=== PATIENT | male | born 1945 | race Caucasian/White ===

== ENCOUNTER 2018-05-21 01:16 | Inpatient (IN) | payer MEDICARE, SELFPAY ==
[2018-05-21] VITALS (12 sets, daily range): BP systolic 135–170; BP diastolic 68–92; PULSE 85–112; RESP 16–18; TEMP 36.7–38.9; O2SAT 94–98; BMI 19.8
--- NOTE | 2018-05-21 02:32 | DI.CT.S_ITS ---
PROCEDURE: CT ABDOMEN PELVIS W CON INDICATIONS: severe Right groin pain with radiation into his back TECHNIQUE: After the administration of intravenous contrast, 5 mm thick sections acquired from the diaphragm to the symphysis. 5 mm coronal and sagittal reformats were acquired. For radiation dose reduction, the following was used: automated exposure control, adjustment of mA and/or kV according to patient size. COMPARISON: None. FINDINGS: Image quality: Excellent. ABDOMEN: Lung bases: Lung bases are clear. Heart size is normal. Solid organs: Liver is normal in size and enhancement. Gallbladder is normal. Biliary system is non dilated. Pancreas enhances normally. Spleen is normal in size and enhancement. No adrenal nodules. Kidneys demonstrate normal size and enhancement, without hydronephrosis. Peritoneum and bowel: There is abrupt caliber change in the distal sigmoid colon. No discrete mass is identified. Moderate amount of stool is present in colon. There are a few colonic diverticula. No evidence for acute diverticulitis. No free air. A trace amount of presacral free fluid is present. Nodes and vessels: Multiple enlarged para-aortic and aortocaval lymph nodes are present. For example, a 2.4 x 1.9 cm left para-aortic lymph node is noted. There is a 1.9 x 2.5 cm aortic liver lymph node. Aorta and inferior vena cava are normal in size. There is moderate atherosclerosis. Miscellaneous: No ventral hernias. PELVIS: Genitourinary: Bladder wall thickness is normal. Enlarged prostate. Miscellaneous: Small perirectal lymph nodes are noted. No inguinal hernias or adenopathy. Bones: There are diffuse osseous sclerosis suspicious for metastases. No vertebral body compression fractures. IMPRESSION: 1. Retroperitoneal lymphadenopathy consistent with metastatic disease or lymphoma. 2. Diffuse osseous sclerosis consistent with osseous metastases. 3. Abrupt change in caliber of the distal sigmoid colon. There are small perirectal lymph nodes. Recommend colonoscopy for further evaluation rule out primary colon cancer. 4. Mild diverticulosis without acute diverticulitis. 5. Enlarged prostate. 6. Trace amount of free fluid in pelvis. No significant discrepancy with the retail shift leader radiology preliminary report. Dictated by: Evelyn Rodriguez M.D. on 05/21/2018 at 8:13 Approved by: Evelyn Rodriguez M.D. on 05/21/2018 at 8:26
[2018-05-21] MEDS: SODIUM CHLORIDE 0.9% 1,000 ML 1000 ML IV (02:44)
[2018-05-21] MEDS: HYDROMORPHONE 1 MG INJ 0.5 MG IV (02:44)
[2018-05-21] MEDS: KETOROLAC 60 MG/2 ML VIAL 15 MG IV (02:45)
[2018-05-21 03:07] LABS: Hematocrit 39.5 % (41-53); Hemoglobin 13.9 g/dL (13.5-17.5); Mean Corpuscular HGB Conc 35.1 % (30-36); Mean Corpuscular Volume 88.2 fL (80-100); Platelet Count 134 X10^3/uL (150-400); Red Blood Cell Count 4.48 X10^6/uL (4.5-5.9); Red Cell Distribution Width 12.9 % (11.6-14.8); White Blood Cell Count 12.7 X10^3/uL (4.5-11.0)
[2018-05-21 03:08] LABS: Add Manual Diff / Slide Review YES
--- NOTE | 2018-05-21 03:09 | ED_ITS ---
HPI - Male Genitourinary General Chief complaint: Urogenital-Male Stated complaint: GROIN PAIN, INJURED 6 WEEKS AGO Time Seen by Provider: 05/21/18 01:24 Source: patient and family Mode of arrival: ambulatory Limitations: no limitations History of Present Illness HPI Narrative: 73-year-old otherwise healthy male presents to the emergency department for evaluation of ongoing bilateral groin pain since an injury a few weeks ago when lifting heavy objects. He said there was no sudden onset sharp pain but over the subsequent few days his pain increased in both groins and sometimes wraps around to his back. His pain is much more intense when he moves his legs or hips and improved tremendously when sitting still but he still has some baseline discomfort. Patient denies any change in the strength of his lower extremities and denies numbness, tingling or weakness. He denies any change with urination but states he has had some constipation since starting the medications prescribed by his primary care provider. He has been receiving a combination of hydrocodone and diazepam and had an appointment with physical therapy tomorrow and an outpatient MRI but he canceled come to the emergency department. He denies chest pain or shortness of breath. He denies any fever or chills. Never had a colonoscopy Onset (ago): week(s) Duration: constant Location: right inguinal region and left inguinal region Radiation: right flank and left flank Severity: severe Quality: aching and burning Relieving factors: rest Exacerbating factors: movement lifting Reports denies other symptoms Related Data Allergies Allergy/AdvReac Type Severity Reaction Status Date / Time No Known Drug Allergies Allergy Verified 05/21/18 01:46 Review of Systems Review of Systems All systems reviewed & are unremarkable except as noted in HPI and below Constitutional Denies chills, Denies fever(s), Denies lethargy and Denies weakness Eyes Denies change in vision, Denies eye discharge, Denies irritation and Denies loss of vision ENT Ears, Nose, Mouth, and Throat: Denies change in voice, Denies neck pain and Denies sore throat Cardiovascular Denies chest pain, Denies irregular heart rhythm, Denies lightheadedness, Denies palpitations, Denies dyspnea, Denies dyspnea on exertion and Denies orthopnea Respiratory Denies cough, Denies dyspnea, Denies dyspnea on exertion and Denies wheezing Gastrointestinal Gastrointestinal: Denies abdominal pain, Denies change in bowel habits, Denies diarrhea, Denies nausea and Denies vomiting Genitourinary Reports system reviewed and no additional complaints, except as docu, Denies hematuria, Denies difficulty urinating, Denies dysuria, Reports flank pain, Denies testicular pain, Denies urinary frequency, Denies urinary incontinence and Denies urinary urgency Musculoskeletal Denies neck pain Integumentary/Breasts Denies pruritus, Denies erythema, Denies rash and Denies wounds Neurologic Denies confusion, Denies loss of vision and Denies weakness Psychiatric Denies anxiety, Denies confusion, Denies depression, Denies homicidal ideation and Denies suicidal ideation Endocrine Denies palpitations Hematologic/Lymphatic Denies easy bruising Allergic/Immunologic Denies wheezing PFSH Social History Smoking Status: Never smoker Exam Narrative Exam Narrative: 73-year-old male in mild discomfort, holding his right groin Initial Vital Signs Initial Vital Signs: Vital Signs Temperature 99.1 F 05/21/18 01:46 Pulse Rate 108 H 05/21/18 01:46 Respiratory Rate 18 05/21/18 01:46 Blood Pressure 140/91 H 05/21/18 01:46 Pulse Oximetry 97 05/21/18 01:46 Const General: cooperative, well developed and in distress Nutritional Appearance: well nourished Orientation: alert, awake, oriented x3 and not confused [facility] Head: normocephalic and atraumatic Ears: external ears normal and TM's normal bilaterally Nose: external nose normal and No nasal discharge Face and sinus: sinuses nontender, face symmetric, no sinus tenderness and No dry mucous membranes Mouth: oral mucosae normal and moist mucous membranes Teeth and gingiva: dentition normal Throat: tonsils normal and uvula midline Eyes General: appearance normal, both eyes and all related structures Eyelids: eyelids normal Conjunctivae: conjunctivae normal Sclera: sclerae normal Pupils: PERRL EOM: EOM intact bilaterally Neck Neck: normal visual inspection, trachea midline, No lymphadenopathy, No midline deformity and No JVD Lymphatic: No lymphedema Chest Chest: normal inspection of the chest Resp Effort & Inspection: normal respiratory effort, able to speak in complete sentences, no respiratory distress and no use of accessory muscles Auscultation: clear to auscultation bilaterally, no rales, no rhonchi and no wheezes Cardio Rate: regular rate Rhythm: regular rhythm Heart Sounds: no click, no gallops, no murmurs and no rubs Pulses: normal peripheral pulses GI Inspection: non-distended Palpation: soft, no hepatosplenomegaly, No guarding, No pulsatile mass and No tender Auscultation: normal bowel sounds General: bladder normal to palpation and No CVA tenderness External: no edema, no erythema, no hernia ( no hernia palpated but pain in bilateral inguinal regions with palpation or flexion at the hip), no inguinal lymphadenopathy, no lacerations and no perineal induration Back/Spine/Pelvis Back: No CVA tenderness Cervical Spine: cervical ROM normal and No pain with cervical ROM Thoracic/Lumbar Spine: thoracic and lumbar spine normal to inspection Skin General: no rashes or lesions noted, No jaundice and No petechiae Neuro General: alert, oriented x3, gait normal and no focal motor deficits Speech: speech normal Extrem General: full ROM, no clubbing, cyanosis or edema, no pedal edema and no calf tenderness Psych Appearance: well kempt Mental Status: mental status grossly normal Attitude: cooperative Thought Content: normal and suicidality Judgment: judgment good Course Orders Ordered: ED Orders 05/21/18 02:30 Carcinoembryonic Antigen Stat 05/21/18 02:32 CT abdomen pelvis w con Stat 05/21/18 02:55 Complete Blood Count AUTO DIFF Stat Comprehensive Metabolic Panel Stat Lipase Stat Discontinued Medications Hydromorphone HCl (Dilaudid) 0.5 mg IV NOW ONE Stop: 05/21/18 02:32 Last Admin: 05/21/18 02:44 Dose: 0.5 mg Sodium Chloride (Normal Saline 0.9%) 1,000 mls @ 1,000 mls/hr IV BOLUS ONE Stop: 05/21/18 03:30 Last Admin: 05/21/18 02:44 Dose: 1,000 mls/hr Ketorolac Tromethamine (Toradol) 15 mg IV NOW ONE Stop: 05/21/18 02:32 Last Admin: 05/21/18 02:45 Dose: 15 mg Reevaluation(s) Reevaluation #1: patient feeling improvement after Dilaudid IV Consultations Consultation #1: call to Dr. Infante for OBS for pain control. His service is at capacity and they can accept no more patients Time: 04:56 Vital Signs - 8 hr 05/21/18 01:46 05/21/18 05:05 05/21/18 06:02 Temperature 99.1 F 98.5 F Pulse Rate 108 H 87 88 Respiratory Rate 18 18 16 Blood Pressure 140/91 H 161/85 H Blood Pressure [Left Arm] 146/84 H Pulse Oximetry 97 95 97 MDM - Male Genitourinary Medical Records Attestation: I reviewed the patient's medical records. Lab Data Attestation: I reviewed the patient's lab results. Result diagrams: 05/21/18 02:55 05/21/18 02:55 Lab Results 05/21/18 05/21/18 05/21/18 Range/Units 02:30 02:55 02:55 WBC 12.7 H (4.5-11.0) X10^3/uL RBC 4.48 L (4.5-5.9) X10^6/uL Hgb 13.9 (13.5-17.5) g/dL Hct 39.5 L (41-53) % MCV 88.2 (80-100) fL MCH 31.0 (26-34) PG MCHC 35.1 (30-36) % RDW 12.9 (11.6-14.8) % Plt Count 134 L (150-400) X10^3/uL Neut % (Auto) Not Reportable Lymph % (Auto) Not Reportable [place] % (Auto) Not Reportable Eos % (Auto) Not Reportable Baso % (Auto) Not Reportable Total Counted 100 Seg Neutrophils % 52.0 (38-70) % Band Neutrophils % 17.0 H (3-7) % Lymphocytes % (Manual) 19.0 L (25-45) % Monocytes % (Manual) 8.0 (2-11) % Basophils % (Manual) 1.0 (0-1) % Metamyelocytes % 3.0 H (-0) % Neutrophils # (Manual) 8763 H (4111-5485) /uL RBC Morphology Not Reportable Basophilic Stippling 1+ H Anisocytosis 1+ H Sodium 135 L (137-145) mmol/L Potassium 4.2 (3.4-5.1) mmol/L Chloride 96 L (98-107) mmol/L Carbon Dioxide 31 (22-32) mmol/L BUN 16 (9-20) mg/dL Creatinine 0.80 (0.66-1.25) mg/dL Estimated GFR > 60.0 (>60) mL/min BUN/Creatinine Ratio 20.0 (6-22) Glucose 109 (80-110) mg/dL Calcium 8.9 (8.4-10.2) mg/dL Total Bilirubin 1.0 (0.2-1.3) mg/dL AST 140 H (17-59) IU/L ALT 77 H (21-72) IU/L Alkaline Phosphatase 586 H (38-126) U/L Total Protein 6.7 (6.3-8.2) g/dL Albumin 3.9 (3.5-5.0) g/dL Globulin 2.8 (1.7-4.1) g/dL Albumin/Globulin Ratio 1.4 (1.0-2.8) Lipase 33 (23-300) U/L Carcinoembryonic Ag 2.8 (0.1-3.0) ng/mL Imaging Data CT scan - abdomen: Radiologist's impression: 1. Possible mild wall thickening of the rectosigmoid colon. Query mild proctocolitis 2. Abrupt narrowing of the colon at the distal sigmoid. Few perirectal lymph nodes. Rectosigmoid malignancy not excluded 3. Moderate retroperitoneal lymphadenopathy 4. Multiple sclerotic osseous lesions concerning for metastatic disease MDM Narrative Medical decision making narrative: Patient has had adequate prescription for pain control as an outpatient and is not being appropriately controlled. He requires IV pain meds to control his pain. Discharge Plan Departure Patient Disposition: Admitted As Inpatient Clinical Impression: Intractable abdominal pain, Metastatic bone cancer Discharge Date/Time: 05/21/18 05:35 Interventions: ED Discharge Assessment Last Done: 05/21/18 05:35 Admit Date/Time: 05/21/18 05:24 Admit Provider: Kurtis More
[2018-05-21 03:14] LABS: Alanine Aminotransferase 77 IU/L (21-72); Albumin 3.9 g/dL (3.5-5.0); Albumin Globulin Ratio 1.4 (1.0-2.8); Alkaline Phosphatase 586 U/L (38-126); Aspartate Aminotransferase 140 IU/L (17-59); Blood Urea Nitrogen 16 mg/dL (9-20); Calcium 8.9 mg/dL (8.4-10.2); Carbon Dioxide 31 mmol/L (22-32); Chloride 96 mmol/L (98-107); Estimated Glomerular Filt Rate > 60.0 mL/min (>60); Globulin 2.8 g/dL (1.7-4.1); Glucose 109 mg/dL (80-110); HEMOLYSIS < 15 (0-50); Lipase 33 U/L (23-300); Potassium 4.2 mmol/L (3.4-5.1); Sodium 135 mmol/L (137-145); Total Protein 6.7 g/dL (6.3-8.2)
[2018-05-21 03:35] LABS: Neutrophils Absolute Manual 8763 /uL (3000-5900); Total Cells Counted 100
[2018-05-21 03:36] LABS: Anisocytosis 1+; Basophilic Stippling 1+
--- NOTE | 2018-05-21 05:40 | PC.NURSE ---
pt to room via w/c, amb to bed indep, is present steady on his feet.
[2018-05-21 06:12] LABS: Carcinoembryonic Antigen 2.8 ng/mL (0.1-3.0)
[2018-05-21] MEDS: SODIUM CHLORIDE 0.9% 1,000 ML 125 ML IV ×2 (08:37→16:31)
[2018-05-21] MEDS: HYDROMORPHONE PCA 6 MG/30 ML PCA.VIAL IV ×3 (08:37→21:40)
--- NOTE | 2018-05-21 09:13 | P.HP_ITS ---
History of Present Illness Date Patient Seen: 05/21/18 Time Patient Seen: 08:41 Chief complaint: GROIN PAIN, INJURED 6 WEEKS AGO Narrative: 73-year-old otherwise relatively healthy white male who presented to the emergency department earlier this morning with complaints of 2-3 weeks of intractable right sciatic pain, pelvic pressure, and low back pain near the sacrum. He had been moving some items at his home on [address] several weeks ago and thought that he may have just simply incurred a musculoskeletal strain. He consulted with his family physician who placed him on [place], but the patient has noticed this to be ineffective with progression of his pain over the last 7-10 days. Denies any dysuria or hematuria. No urinary retention. Since starting the pain medication, however, he has had progressive difficulties with constipation. Last bowel movement was 2 days ago. He normally moves his bowels easily once daily. He is passing some flatus. Denies any subjective abdominal distention or pain elsewhere in the abdomen. No nausea or vomiting. Appetite has been decreased over the last 2 or 3 weeks since the onset of his symptoms and he reports a 10 lb weight loss over that time frame. No subjective fever or chills. No night sweats. Denies any jaundice. Major issue currently remains his significant pain in the right groin and right sciatic distribution. Denies any numbness or tingling elsewhere in the lower extremities. No weakness. No incontinence of stool or urine. Denies any melena, hematochezia, or bright red blood per rectum. Of note, he has never had a colorectal screening examination such as colonoscopy. 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 Meds Allergies Allergy/AdvReac Type Severity Reaction Status Date / Time No Known Drug Allergies Allergy Verified 05/21/18 01:46 Review of Systems Constitutional Constitutional: Denies chills, Denies fever(s), Denies night sweats, Reports poor appetite, Denies weakness and Reports weight loss Eyes Eyes: Denies change in vision, Denies itchy eyes and Denies loss of vision ENT Ears, Nose, Mouth, and Throat: No change in voice, No difficulty swallowing and No dizziness Cardiovascular Cardiovascular: Denies chest pain, Denies chest pain at rest, Denies chest pain with activity and Denies rapid, pounding, or irregular heartbeat Respiratory Respiratory: Denies cough and Denies wheezing Gastrointestinal Gastrointestinal: Reports as per HPI and Denies dysphagia Genitourinary Genitourinary: Reports as per HPI Musculoskeletal Musculoskeletal: Reports as per HPI Integumentary/Breasts Skin/Breast: Denies change in pigmentation and Denies jaundice Neurologic Neurologic: Denies dizziness, Denies loss of vision, Reports radicular pain (As per HPI) and Denies weakness Psychiatric Psychiatric: Denies anxiety and Denies depression Endocrine Endocrine: Denies polyuria and Denies palpitations Hematologic/Lymphatic Hematologic/Lymphatic: Denies easy bleeding and Denies easy bruising Allergic/Immunologic Allergic/Immunologic: Denies itchy eyes and Denies wheezing Exam Vital Signs (past 8 hours): - 05/21/18 01:46 05/21/18 05:05 05/21/18 06:02 Temperature 99.1 F 98.5 F Pulse Rate 108 H 87 88 Respiratory Rate 18 18 16 Blood Pressure 140/91 H 161/85 H Blood Pressure [Left Arm] 146/84 H Pulse Oximetry 97 95 97 Oxygen Delivery Method Room Air Narrative Exam Narrative: Well-nourished well-developed thin male in no acute distress. He is lying comfortably in bed at the time my visit. Alert oriented x3 Sclera nonicteric Neck is supple without lymphadenopathy. Trachea is midline. Chest is clear to auscultation bilaterally with regular rate and rhythm. No murmurs, gallops, rubs Abdomen is soft, nondistended, nontender, no masses. No hepatomegaly. No obvious ascites. Femoral pulses are easily palpable bilaterally and symmetric. No inguinal lymphadenopathy or masses. No obvious hernias. He is minimally tender to palpation in the lower abdomen at the suprapubic region but certainly without guarding or rebound. Extremities show no clubbing, cyanosis, or edema. No atrophy. He has normal strength with extension and dorsiflexion of the feet bilaterally. Full range of motion of lower extremities. Rectal examination is deferred in light of pending endoscopy tomorrow. Objective Labs Result Diagrams: 05/21/18 02:55 05/21/18 02:55 Labs: Laboratory Results - last 24 hr 05/21/18 05/21/18 05/21/18 02:30 02:55 02:55 WBC 12.7 H RBC 4.48 L Hgb 13.9 Hct 39.5 L MCV 88.2 MCH 31.0 MCHC 35.1 RDW 12.9 Plt Count 134 L Neut % (Auto) Not Reportable Lymph % (Auto) Not Reportable [place] % (Auto) Not Reportable Eos % (Auto) Not Reportable Baso % (Auto) Not Reportable Total Counted 100 Seg Neutrophils % 52.0 Band Neutrophils % 17.0 H Lymphocytes % (Manual) 19.0 L Monocytes % (Manual) 8.0 Basophils % (Manual) 1.0 Metamyelocytes % 3.0 H Neutrophils # (Manual) 8763 H RBC Morphology Not Reportable Basophilic Stippling 1+ H Anisocytosis 1+ H Sodium 135 L Potassium 4.2 Chloride 96 L Carbon Dioxide 31 BUN 16 Creatinine 0.80 Estimated GFR > 60.0 BUN/Creatinine Ratio 20.0 Glucose 109 Calcium 8.9 Total Bilirubin 1.0 AST 140 H ALT 77 H Alkaline Phosphatase 586 H Total Protein 6.7 Albumin 3.9 Globulin 2.8 Albumin/Globulin Ratio 1.4 Lipase 33 Carcinoembryonic Ag 2.8 Liver function tests would potentially suggest nonobstructive inflammation versus elevated alkaline phosphatase secondary to bony erosion. Tests are otherwise unremarkable. I have personally reviewed his CT scan of the abdomen and pelvis done in the emergency department. There is evidence of significant thickening of the colon near the rectosigmoid junction and appears to be most consistent with mass versus inflammatory process. There is some abnormal lymph nodes in the mesentery. Sclerotic lesions of the bone may suggest metastases as well which would explain his pain symptoms. Assessment & Plan Plan: Assessment/Plan Narrative: 73-year-old male with possible colorectal neoplasia with potential metastases to lymph nodes and bones based on imaging and laboratory studies. CEA is normal however. Regardless, the patient clearly requires endoscopy with potential biopsy for diagnostic purposes. He also needs admission for intravenous narcotics for pain control. We will have to work define an adequate oral pain regimen within the next 1-2 days to suffice as an outpatient. I discussed the technical details of colonoscopy including the bowel preparation with him today. Risks, benefits, alternatives were discussed. Risks including but not limited to sedation, aspiration, bleeding, pain, missed lesion, incomplete examination especially if the lesion is somewhat obstructing, need for further radiographic studies or treatment, need for further tests, nondiagnostic study, colonic perforation, need for major abdominal surgery under those conditions, and potential risk of major abdominal surgery were all discussed in detail. All questions were answered to his satisfaction, and he voiced understanding. Consent was left on the chart. We will perform bowel preparation today and proceed with endoscopy tomorrow. Orders were written.
--- NOTE | 2018-05-21 09:26 | CM.DANOTE ---
DCP:Case received, EMR reviewed and met with patient. Introduced self ad role.DCP template completed with info currently available. Patient is a 73 year old male who admitted early this am to the care of the hospitalist team. PCP: Dr. Alexander. Payer: confirmed Medicare. Patient came into hospital with symptoms of groin pain. Also, bowel issues. Will be having an endoscopy today as well. P: DCP will continue to plan assess. Goal is to return home with . Latesha Linder RN/Freight [employer]
[2018-05-21] MEDS: ENOXAPARIN 40 MG/0.4 ML SYRINGE SUBCUT (10:13)
[2018-05-21] MEDS: PEG3350/SOD SULF,BICARB,CL/KCL 4,000 ML SOLUTION 4000 ML PO (16:39)
[2018-05-21] MEDS: ACETAMINOPHEN 325 MG TABLET 650 MG PO (16:46)
[2018-05-22] VITALS (9 sets, daily range): BP systolic 139–173; BP diastolic 71–87; PULSE 96–107; RESP 16–20; TEMP 36.5–38.6; O2SAT 93–98
[2018-05-22] MEDS: SODIUM CHLORIDE 0.9% 1,000 ML 125 ML IV ×4 (01:24→16:56)
[2018-05-22] MEDS: ACETAMINOPHEN 325 MG TABLET 650 MG PO (01:49)
--- NOTE | 2018-05-22 02:13 | PC.NURSE ---
pt noted w/face flushed, warm to touch, temp recheck = 101.5, medicated w/650mg of tylenol & cool cloth to forehead. 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 completed 1/2 bottle of go-lytely atmidnight w/discomfort r/t tight abd. 2 episodes of brown liquid to in toilet eerly in shift, large amt dark brown liquid stool on bsc reported by fork truck driver at aprx 0100.
[2018-05-22] MEDS: HYDROMORPHONE PCA 6 MG/30 ML PCA.VIAL IV ×3 (06:58→22:11)
--- NOTE | 2018-05-22 08:02 | PM.PREOP ---
Pre-operative Note Interval Note Pre-op Check: Yes History & Physical Reviewed by Physician and Yes Exam Performed Changes: No H&P completed within 30 days and has changed as indicated here:: History physical examination performed yesterday and placed on the chart. No changes over the last 24 hr. Patient has completed bowel preparation for colonoscopy. Proceed today as planned. ASA Class (for procedural sedation): II
[2018-05-22] MEDS: MAGNESIUM CITRATE 300 ML SOLUTION PO (08:11)
[2018-05-22] MEDS: FLEETS ENEMA 1 EACH PR ×2 (08:12→22:03)
--- NOTE | 2018-05-22 10:47 | PC.NURSE ---
Addendum entered by Jerica Alston R.N. 05/22/18 13:37: PAIN - comfortable in chair, discussed pain mgt and mobilization this afternoon, given 5mg po oxycodone for discomfort l knee 3 on scale 0/10. Original Note: Addendum entered by Jerica Alston R.N. 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
--- NOTE | 2018-05-22 13:33 | P.PN_ITS ---
Subjective Date Patient Seen: 05/22/18 Time Patient Seen: 13:30 Interval history: Patient completed most of the bowel preparation but it was not adequate. He is still passing opaque stool. We therefore could not proceed with colonoscopy today. We will re-prep the patient today. Currently his pain is controlled. No nausea or vomiting. No dysuria. Exam Vital Signs (past 8 hours): - 05/22/18 08:00 05/22/18 08:37 05/22/18 11:56 Temperature 97.7 F 97.4 F L Pulse Rate 103 H 89 Respiratory Rate 16 12 Blood Pressure 143/86 H 127/90 H Pulse Oximetry 96 93 99 05/22/18 12:00 05/22/18 12:05 05/22/18 12:20 Temperature 99.1 F 97.4 F L 97.5 F L Pulse Rate 103 H 95 H 94 H Respiratory Rate 16 8 L 16 Blood Pressure 151/74 H 122/83 H 149/104 H Pulse Oximetry 94 97 Oxygen Delivery Method Nasal Cannula Oxygen Flow Rate 3 Narrative Exam Narrative: Alert oriented x3. No acute distress. is at the bedside Abdomen soft and nondistended Patient ambulating with the assistance of a walker Objective Labs Result Diagrams: 05/21/18 02:55 05/21/18 02:55 Assessment & Plan Plan: Assessment/Plan Narrative: 73-year-old male with groin and pelvic pain consistent with advanced colorectal neoplasia. He requires colonoscopy for diagnostic purposes. However, his bowel preparation is inadequate today despite receiving GoLYTELY, Fleet's enema , and magnesium citrate. We will therefore cancel colonoscopy today and rescheduled for tomorrow. Perform additional preparation and maintain clear liquid diet today. I discussed all this with the patient and his in detail. All questions were answered to their satisfaction, and he voiced understanding.
[2018-05-22] MEDS: ENOXAPARIN 40 MG/0.4 ML SYRINGE SUBCUT (14:09)
[2018-05-22] MEDS: POLYETHYLENE GLYCOL 3350 17 GM POWD.PACK PO (17:04)
[2018-05-23] VITALS (25 sets, daily range): BP systolic 88–166; BP diastolic 44–83; PULSE 74–113; RESP 10–18; TEMP 36.3–38.4; O2SAT 90–98; BMI 19.8
[2018-05-23] MEDS: SODIUM CHLORIDE 0.9% 1,000 ML 125 ML IV ×2 (01:05→10:00)
[2018-05-23] MEDS: POLYETHYLENE GLYCOL 3350 17 GM POWD.PACK PO (04:01)
[2018-05-23] MEDS: HYDROMORPHONE PCA 6 MG/30 ML PCA.VIAL IV (05:30)
[2018-05-23] MEDS: ACETAMINOPHEN 325 MG TABLET 650 MG PO (06:13)
--- NOTE | 2018-05-23 08:16 | PC.NURSE ---
AM NOTE - sitting upright in chair, dozing, awakens easily, states abd pain about the same, not improved overnight, dilaudid web master 0.2/10/6mg, did have miralax 4am, no stool since admin, 2l 98%, removed 02 for mobilizing in room and sat 93-94%, bs dim mid to lower, active bt. hr occass irreg 102, spouse at side while ambul w/fww in room, ret to chair.
--- NOTE | 2018-05-23 08:26 | PM.PREOP ---
Pre-operative Note Interval Note Pre-op Check: Yes History & Physical Reviewed by Physician and Yes Exam Performed Changes: No ASA Class (for procedural sedation): II
--- NOTE | 2018-05-23 10:06 | SUR.OPER ---
to endo from pacu via cart respirations unlabored iv patnet positioneed per self for procedure
[2018-05-23] MEDS: MIDAZOLAM 5 MG/5 ML VIAL 6 MG IV (10:52)
[2018-05-23] MEDS: fentaNYL 250 MCG/5 ML INJ 350 MCG IV (10:52)
--- NOTE | 2018-05-23 10:56 | PM.OP.ENDO ---
Operative Date/Time/Diagnoses Date of procedure: 05/23/18 Time of procedure: 10:56 Pre-op diagnosis: Possible colorectal neoplasm with bony metastases Post-op diagnosis: other (Normal colon and rectum within the context of an extremely poor bowel preparation) Procedure & Clinicians Study performed: 1. Sedation per surgeon 2. Colonoscopy Same procedure as scheduled: Yes Indications: 73-year-old male who presented with intractable pelvic pain at which time CT scan suggested rectosigmoid neoplasm with potential bony and lymphatic metastases. Patient was admitted for pain control with intravenous narcotics since oral medication was not effective. He was also recommended undergo colonoscopy during this admission for potential diagnostic purposes. He required a 2 day bowel preparation as he was refractory to standard bowel regimen. After a 2 day bowel preparation consisting of clear liquids only, 0.5 gal of GoLYTELY, 2 bottles of MiraLax, 1 bottle of magnesium citrate, and 2 Fleet's enemas he was taken to the endoscopy suite for planned colonoscopy today. Surgeon: Kurtis More Procedure Notes SCOAP/Timeout: Yes Procedure in detail: After obtaining informed consent, the patient was brought to the GI suite and placed in the left lateral decubitus position on the examination table. After placement of appropriate monitors, the patient was given incremental doses of Versed and Fentanyl until an appropriate level of sedation was achieved. A time out was held per SCOAP protocol. A digital rectal examination was performed and did not reveal any masses or obstructing lesions. The colonoscope was gently passed into the patient's anus and the entire colon navigated to the level of the cecum with difficulty due to extremely poor bowel preparation. There was opaque thick liquid and some solid stool throughout the entire colon. Once in the cecum, the scope was withdrawn being sure to go before and beyond all mucosal folds and prominences and get an excellent examination. Terminal ileum was intubated and the mucosa was grossly normal. The findings are noted above. However, there was absolutely no evidence of any obvious mucosal neoplasms that would explain the CT scan findings or any significant neoplastic colorectal disease. He may have had polypoid lesions throughout the colon which could not be appreciated due to the poor preparation. No obvious large tumors however consistent with CT scan suggestion of such. At the level of the rectal vault, the scope was retroflexed and the internal anal canal was examined. The scope was straightened and air aspirated from the colon. The instrument was removed from the patient's body and the procedure was concluded. The patient was allowed to awaken from sedation without difficulty and taken to the post-anesthesia care unit in good condition. Scope withdrawal time: 10:06 min Sedation minutes: 44 Findings: other findings (Normal colon and rectum within the context of very poor bowel preparation) Specimen(s): none sent Complications: none Recommendations: Other recommendation (Repeat colonoscopy it later date for screening purposes but requires ongoing evaluation for other primary tumor) Plan for aftercare: 1. Return to regular surgical floor for ongoing convalescence 2. Repeat CBC, complete metabolic panel, and obtain PSA level 3. Allow regular diet and convert to oral analgesia Follow up: as needed Disposition: PACU
--- NOTE | 2018-05-23 10:59 | PC.NURSE ---
Addendum entered by Jerica Alston R.N. 05/23/18 12:44: POT OP - arrived drowsy, awakens easily, slid guerney over to bed, pain about the same, still rlq, restarted budget record clerk until pt able jessica po and then discussed po dilaudid for pain control, ra 93%, vs stable, 149/82, p102, too groggy for po at this time, given small sip water as pt dislikes ice chips, dinner order plain white rice and veg broth ordered and spouse will bring in items that she feels pt tolerates, vegetarian diet w/limited dairy. Original Note: AM NOTE - pt up in chair this am, lightly dozing, states pain r groin, lower abd about the same, budget record clerk providing adequate relief, did have miralax this am, no immediate stool, later am did have small qty brown sediment x2, aware and continued with colonoscopy, bs were active, taken via chair with spouse accompanying, prior to ts, 2l 98%, bs are dim, ra sat remained 93-94%, hr 102.
[2018-05-23] MEDS: ENOXAPARIN 40 MG/0.4 ML SYRINGE SUBCUT (12:18)
[2018-05-23 14:37] LABS: Add Manual Diff / Slide Review NO; Basophils Percent Auto 0.5 % (0-2); Eosinophils Percent Auto 0.4 % (2-4); Hematocrit 33.2 % (41-53); Hemoglobin 11.7 g/dL (13.5-17.5); Lymphocytes Percent Auto 14.2 % (25-40); Mean Corpuscular HGB Conc 35.2 % (30-36); Mean Corpuscular Hemoglobin 31.3 PG (26-34); Monocytes Percent Auto 7.8 % (3-14); Neutrophils Absolute Auto 8400 /uL (3000-5900); Neutrophils Percent Auto 77.1 % (50-75); Platelet Count 113 X10^3/uL (150-400); Red Blood Cell Count 3.74 X10^6/uL (4.5-5.9); Red Cell Distribution Width 13.2 % (11.6-14.8); White Blood Cell Count 10.9 X10^3/uL (4.5-11.0)
[2018-05-23 14:50] LABS: Alanine Aminotransferase 67 IU/L (21-72); Albumin 2.9 g/dL (3.5-5.0); Albumin Globulin Ratio 1.2 (1.0-2.8); Alkaline Phosphatase 494 U/L (38-126); Aspartate Aminotransferase 113 IU/L (17-59); BUN Creatinine Ratio 21.4 (6-22); Bilirubin Total 0.9 mg/dL (0.2-1.3); Blood Urea Nitrogen 15 mg/dL (9-20); Calcium 8.2 mg/dL (8.4-10.2); Carbon Dioxide 28 mmol/L (22-32); Chloride 98 mmol/L (98-107); Estimated Glomerular Filt Rate > 60.0 mL/min (>60); Globulin 2.5 g/dL (1.7-4.1); Glucose 85 mg/dL (80-110); HEMOLYSIS < 15 (0-50); Potassium 3.9 mmol/L (3.4-5.1); Sodium 136 mmol/L (137-145); Total Protein 5.4 g/dL (6.3-8.2)
--- NOTE | 2018-05-23 15:44 | CM.DPC ---
DCP: continued: Case received, EMR reviewed and met at length with pt's Jesscia at her request. Pt with new diagnosis of cancer, per Jessica, discovered in the ER. Primary source has yet to be discovered and she reports she and her are just trying to come to optical mechanic with everything. She is concerned re her 's level of pain when he moves and need for ongoing outpt testing etc. 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 They have a 17 year old.) but she hopes for a snf stay in [place] and to give time for the DX and POC to clarify and with eventual return home. Discussed snf choice/[place]/[facility]. Referral make/vm left with [place]/[facility] now. P: talk with Dr. More tomorrow when he rounds. Jessica has been rooming in with pt. Will see her and pt tomorrow and am hopeful all can discuss plan. JUANIS Pizano and rayne Restrepo are update. Confirmed pt has Medicare/ no supplement.
[2018-05-23] MEDS: HYDROMORPHONE 2 MG TABLET PO ×3 (17:05→23:44)
[2018-05-23] MEDS: ONDANSETRON 4 MG/2 ML INJ IV (17:05)
--- NOTE | 2018-05-23 17:18 | P.PN_ITS ---
Subjective Date Patient Seen: 05/23/18 Time Patient Seen: 17:11 Interval history: Patient continues to complain of right groin pain as per his admission issues. Remains on Dilaudid [employer] since his appetite remains poor. He has passed some flatus since colonoscopy earlier this morning. No nausea or vomiting. No dysuria. Did have a fever earlier this afternoon immediately after endoscopy. Exam Vital Signs (past 8 hours): - 05/23/18 09:44 05/23/18 10:55 05/23/18 11:00 Temperature 98.7 F 99.1 F Pulse Rate 91 H 80 79 Respiratory Rate 11 L 10 L 10 L Blood Pressure 143/83 H 96/50 L 91/46 L Pulse Oximetry 96 97 98 05/23/18 11:05 05/23/18 11:10 05/23/18 11:15 Temperature Pulse Rate 79 78 82 Respiratory Rate 10 L 10 L 10 L Blood Pressure 90/46 L 89/46 L 88/44 L Pulse Oximetry 97 97 97 05/23/18 11:20 05/23/18 11:35 05/23/18 11:50 Temperature Pulse Rate 80 74 76 Respiratory Rate 10 L 10 L 12 Blood Pressure 107/49 L 90/44 L 99/53 L Pulse Oximetry 96 97 98 05/23/18 12:05 05/23/18 12:40 05/23/18 13:07 Temperature 97.6 F 97.4 F L 97.8 F Pulse Rate 93 H 95 H 82 Respiratory Rate 16 16 16 Blood Pressure 149/82 H 143/77 H 139/81 H Pulse Oximetry 92 95 96 05/23/18 14:05 05/23/18 14:10 05/23/18 15:11 Temperature 98.1 F 101.2 F H Pulse Rate 98 H 113 H Respiratory Rate 16 16 Blood Pressure 157/78 H 155/76 H Pulse Oximetry 95 97 93 05/23/18 16:05 Temperature Pulse Rate Respiratory Rate Blood Pressure Pulse Oximetry 96 Oxygen Delivery Method Room Air Oxygen Flow Rate 2 Narrative Exam Narrative: Lying comfortably in bed in no acute distress. He just awoke from a nap. is at the bedside for my entire visit this afternoon. Patient is alert and oriented x3 Abdomen is soft but mildly tympanitic consistent with recent endoscopy. Nontender. Objective Labs Result Diagrams: 05/23/18 14:30 05/23/18 14:30 Labs: Laboratory Results - last 24 hr 05/23/18 05/23/18 14:30 14:30 WBC 10.9 RBC 3.74 L Hgb 11.7 L Hct 33.2 L MCV 89.0 MCH 31.3 MCHC 35.2 RDW 13.2 Plt Count 113 L Neut % (Auto) 77.1 H Lymph % (Auto) 14.2 L [place] % (Auto) 7.8 Eos % (Auto) 0.4 L Baso % (Auto) 0.5 Neut # (Auto) 8400 H Sodium 136 L Potassium 3.9 Chloride 98 Carbon Dioxide 28 BUN 15 Creatinine 0.70 Estimated GFR > 60.0 BUN/Creatinine Ratio 21.4 Glucose 85 Calcium 8.2 L Total Bilirubin 0.9 AST 113 H ALT 67 Alkaline Phosphatase 494 H Total Protein 5.4 L Albumin 2.9 L Globulin 2.5 Albumin/Globulin Ratio 1.2 Prostate Specific Ag 536.000 H Assessment & Plan Plan: Assessment/Plan Narrative: 73-year-old male stable status post colonoscopy earlier today. Endoscopic findings were essentially unremarkable. I discussed all of these findings with the patient in detail this afternoon. His repeat laboratory studies obtained after endoscopy demonstrates significant protein malnutrition, anemia likely secondary to tumor and malnutrition, and obviously a significantly elevated abnormal prostate specific antigen. 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 The bony metastases would most likely explain his symptoms of pain. Discussed all this with the patient and his in detail this afternoon. I also explained that treatment of prostate cancer falls well beyond my expertise. He requires the services of a urologist and medical oncologist. He may also require radiation oncology. I explained that we do not have urology services in any capacity at this institution. We can, however , facilitate a referral for their consultation likely as an outpatient within the next 1-2 weeks. In the interim we will continue to treat his pain accordingly. I will also check urinalysis given his fever. If he is otherwise stable I will discharge him from the hospital tomorrow with outpatient consultations for the above services. At this time there are no further issues that fall under the realm of general surgery for which I can offer my expertise. Nonetheless I will continue to manage his pain to the best of my ability and arrange the above consultations as quickly as possible. All the patient's questions were answered to his satisfaction, and he voiced understanding.
[2018-05-23 18:13] LABS: Bacteria Urine None Seen; RBC Urine None Seen (0-5/HPF); WBC Urine None Seen (0-5/HPF)
[2018-05-23 18:14] LABS: Appearance Urine UA CLEAR; Bilirubin Urine UA NEGATIVE (NEGATIVE); Color Urine UA YELLOW; Glucose Urine UA NEGATIVE (Normal); Ketones Urine UA 2+ (NEGATIVE); Leukocyte Esterase Urine UA NEGATIVE (NEGATIVE); Nitrite Urine UA Negative (Negative); Occult Blood Urine UA TRACE-LYSED (Negative); Protein Urine UA 1+ (Negative); Specific Gravity Urine UA 1.025 (1.000-1.035); Urobilinogen Urine UA 0.2 E.U./dL (0.2)
[2018-05-23 18:36] LABS: Amorphous Sediment Urine 1+; Culture Indicated Urine Cult Not Indicated
[2018-05-23] MEDS: GABAPENTIN 300 MG CAPSULE PO (20:27)
[2018-05-23] MEDS: SENNOSIDES 8.6 MG TABLET PO (20:32)
[2018-05-23] MEDS: DOCUSATE 100 MG CAPSULE PO (20:32)
[2018-05-24] VITALS (16 sets, daily range): BP systolic 104–136; BP diastolic 59–82; PULSE 64–170; RESP 12–22; TEMP 36.8–38.4; O2SAT 94–98
--- NOTE | 2018-05-24 | DI.ECHO.S_ITS ---
[facility] +---------+ [facility] +---------+ : : [address] : : : : [id number] : : : : Phone: [phone]---------+ Echocardiogram Report + + :Name: ROSALVA SINGH I Study Date: 05/25/2018 Height: 68 in : :[facility] Weight: 135 lb : : Gender: Male BSA: 1.7 m2 : :: 1945 Age: 73 yrs BP: 151/79 mmHg: :Reason For Study: Atrial fibrillation : : Performed By: Cici Mckinney : :Referring: IGLESIA GRIFFITH : + + Interpretation Summary The ejection fraction is estimated to be 60-65%. The left atrium is moderately dilated. The right ventricular systolic pressure is estimated at 30 mmHg assuming a right atrial pressure of 3 mm Hg. There is no significant valvular heart disease. Procedure: A two-dimensional transthoracic echocardiogram with color flow and Doppler was performed. The study quality was technically good. There is no prior echocardiogram noted for this patient. The patient was in normal sinus rhythm during the exam. Left Ventricle: The left ventricle is normal in size, wall thickness, and systolic function without any focal wall motion abnormalities. The ejection fraction is estimated to be 60-65%. Assessment of diastolic parameters suggests a pseudonormalization pattern, consistent with elevated filling pressures. Right Ventricle: The right ventricle grossly appears normal in size with probable normal systolic function. Atria: The left atrium is moderately dilated. Right atrial size is normal. The interatrial septum is intact with no evidence for an atrial septal defect. Mitral Valve: The mitral valve is normal in structure and function. There is trace mitral regurgitation. Aortic Valve: The aortic valve is trileaflet. The aortic valve opens well. No aortic regurgitation is present. Tricuspid Valve: The tricuspid valve is normal in structure and function. There is a trace or physiologic amount of tricuspid regurgitation. The right ventricular systolic pressure is estimated at 30 mmHg assuming a right atrial pressure of 3 mm Hg. Pulmonic Valve: The pulmonic valve is not well seen, but is grossly normal. There is mild pulmonic regurgitation. Great Vessels: The aortic root is mildly dilated. The ascending aorta is at the upper limits of normal in size. The IVC is of normal diameter and collapses greater than 50% with a sniff. This suggests a low right atrial pressure of 3 mm Hg. Pericardium/ Pleura There is no pericardial effusion. There is no pleural effusion. MMode/2D Measurements & Calculations LVIDd: 4.5 cm Ao root diam: 3.8 cm LVIDs: 3.1 cm Aortic Jxn: 3.1 cm FS: 32.7 % asc Aorta Diam: 3.6 cm EPSS: 0.50 cm Ao Arch Diam (Prox Trans): 2.5 cm IVSd: 0.84 cm LVPWd: 0.95 cm LV pal. diameter/BSA (cm/m^2): 2.6 LV sys. diameter/BSA (cm/m^2): 1.8 LA dimension: 3.8 cm RA long axis: 4.8 cm LA A2 area: 23.7 cm2 RA area: 17.5 cm2 LA A4 area: 20.5 cm2 RA vol: 54.2 ml LA length (vol): 4.9 cm RA : 31.3 ml/m2 LA vol: 84.4 ml IVC diam: 1.6 cm LA vol index: 48.8 ml/m2 RVDd major: 4.9 cm RVD1 (basal): 3.4 cm RVD2 (mid): 2.9 cm Doppler Measurements & Calculations Ao V2 max: 115.4 cm/sec MV E max uriel: 95.3 cm/sec Ao V2 mean: 87.5 cm/sec MV A max uriel: 81.6 cm/sec Ao max P.3 mmHg MV E/A: 1.2 Ao mean P.5 mmHg Med Peak E' Uriel: 6.2 cm/sec Ao V2 VTI: 26.7 cm E/E' med: 15.3 Lat Peak E' Uriel: 6.5 cm/sec E/E' lat: 14.6 E/e' average: 15.0 MV dec time: 0.15 sec MV P1/2t: 45.9 msec TR max uriel: 260.4 cm/sec MV P1/2t max uriel: 95.8 cm/sec TR max P.1 mmHg MVA(P1/2t): 4.8 cm2 PA V2 max: 113.7 cm/sec PA V2 mean: 70.8 cm/sec PA mean P.5 mmHg PA Accel Time: 0.14 sec Reading Physician:12:07 PM
[2018-05-24] MEDS: ACETAMINOPHEN 325 MG TABLET 650 MG PO ×3 (02:28→18:21)
[2018-05-24] MEDS: HYDROMORPHONE 2 MG TABLET PO ×7 (02:29→23:31)
--- NOTE | 2018-05-24 04:28 | DI.RAD.S_ITS ---
PROCEDURE: XR CHEST 1V INDICATIONS: chest pain TECHNIQUE: One view of the chest was acquired. COMPARISON: [facility], CT, CT ABDOMEN PELVIS W CON, 05/21/2018, 3:13. FINDINGS: Surgical changes and devices: None. Lungs and pleura: There is blunting of the left costophrenic angle as well as dependent left basilar changes. Mediastinum: Mediastinal contours appear normal. Heart size is normal. Bones and chest wall: No suspicious bony lesions. Overlying soft tissues appear unremarkable. IMPRESSION: Blunting of the left costophrenic angle consistent with small effusion. Dependent changes in the left base are also noted possibly atelectasis versus developing airspace disease such as pneumonia. Dictated by: Laina Mullins M.D. on 05/24/2018 at 9:23 Approved by: Laina Mullins M.D. on 05/24/2018 at 9:24
[2018-05-24 05:09] LABS: Creatine Kinase 146 U/L (55-170)
[2018-05-24 05:22] LABS: Troponin I 0.088 ng/mL (0.01-0.034)
--- NOTE | 2018-05-24 06:29 | PM.PN.1 ---
Subjective Date Patient Seen: 05/24/18 Time Patient Seen: 05:50 Interval history: Awoke with chest pressure in the retrosternal position this morning. He notified nursing staff who subsequently contacted me at approximately 4:30 a.m. this morning. Patient denies shortness of breath. No abdominal pain at all. Does feel slightly distended following endoscopy yesterday however. Pelvic and right hip pain through the right groin remained unchanged but better controlled with more frequent Dilaudid and scheduled gabapentin. No nausea or vomiting. Tolerated a small dinner last night. Exam Vital Signs (past 8 hours): - 05/23/18 23:58 05/24/18 00:00 05/24/18 03:28 Temperature 98.5 F 99.0 F Pulse Rate 97 H Respiratory Rate 16 Blood Pressure 152/75 H Pulse Oximetry 95 95 05/24/18 04:23 05/24/18 05:53 Temperature 98.6 F Pulse Rate 170 H 162 H Respiratory Rate 12 18 Blood Pressure 121/82 H 115/80 Pulse Oximetry 96 98 Oxygen Delivery Method Room Air Oxygen Flow Rate 2 Narrative Exam Narrative: Patient is sitting comfortably in the bed with his at the bedside. No acute distress. Alert oriented x3. He is conversing normally without difficulty Sclera nonicteric Neck is supple Moves all extremities symmetrically without any obvious neurologic deficits Chest is clear to auscultation bilaterally without crackles or wheezes. No rhonchi. No murmurs or rubs. However, he has an irregular very rapid rhythm by palpation of his radial pulse as well as auscultation of the heart. Extremities show no clubbing, cyanosis, or edema Abdomen is mildly tympanitic but very soft and nontender. No masses. Objective Labs Result Diagrams: 05/23/18 14:30 05/23/18 14:30 Labs: Laboratory Results - last 24 hr 05/23/18 05/23/18 05/23/18 14:30 14:30 17:30 WBC 10.9 RBC 3.74 L Hgb 11.7 L Hct 33.2 L MCV 89.0 MCH 31.3 MCHC 35.2 RDW 13.2 Plt Count 113 L Neut % (Auto) 77.1 H Lymph % (Auto) 14.2 L [place] % (Auto) 7.8 Eos % (Auto) 0.4 L Baso % (Auto) 0.5 Neut # (Auto) 8400 H Sodium 136 L Potassium 3.9 Chloride 98 Carbon Dioxide 28 BUN 15 Creatinine 0.70 Estimated GFR > 60.0 BUN/Creatinine Ratio 21.4 Glucose 85 Calcium 8.2 L Total Bilirubin 0.9 AST 113 H ALT 67 Alkaline Phosphatase 494 H Total Creatine Kinase Troponin I Total Protein 5.4 L Albumin 2.9 L Globulin 2.5 Albumin/Globulin Ratio 1.2 Prostate Specific Ag 536.000 H Urine Color Yellow Urine Appearance Clear Urine pH 5.0 Ur Specific [place] 1.025 Urine Protein 1+ H Urine Glucose (UA) Negative Urine Ketones 2+ H Urine Occult Blood Trace-lysed Urine Nitrate Negative Urine Bilirubin Negative Urine Urobilinogen 0.2 Ur Leukocyte Esterase Negative Urine RBC None seen Urine WBC None seen Amorphous Sediment 1+ Urine Bacteria None seen Ur Culture Indicated? Cult not indicated Micro UA Comment Not Reportable 05/24/18 04:45 WBC RBC Hgb Hct MCV MCH MCHC RDW Plt Count Neut % (Auto) Lymph % (Auto) [place] % (Auto) Eos % (Auto) Baso % (Auto) Neut # (Auto) Sodium Potassium Chloride Carbon Dioxide BUN Creatinine Estimated GFR BUN/Creatinine Ratio Glucose Calcium Total Bilirubin AST ALT Alkaline Phosphatase Total Creatine Kinase 146 Troponin I 0.088 H Total Protein Albumin Globulin Albumin/Globulin Ratio Prostate Specific Ag Urine Color Urine Appearance Urine pH Ur Specific [place] Urine Protein Urine Glucose (UA) Urine Ketones Urine Occult Blood Urine Nitrate Urine Bilirubin Urine Urobilinogen Ur Leukocyte Esterase Urine RBC Urine WBC Amorphous Sediment Urine Bacteria Ur Culture Indicated? Micro UA Comment Urinalysis yesterday was negative. His troponin is minimally elevated this morning. Twelve lead EKG was also obtained which shows atrial fibrillation and showed rapid ventricular response to 160 beats per minute. There may be some slight ST depression laterally but no ST elevation. Portable upright chest x-ray done at the time of his symptoms is personally reviewed by me. No evidence of pneumothorax or infiltrates. No effusions. Cardiac silhouette is normal. No free air under the diaphragm. No significant gastric dilatation. Air in the left colon as anticipated near the splenic flexure. Assessment & Plan Plan: Assessment/Plan Narrative: 73-year-old male with newly diagnosed likely metastatic prostate cancer involving lymph nodes and bone now with new onset atrial fibrillation with rapid ventricular response. His troponin may be slightly elevated due to compromised coronary perfusion because of the rapid rate. We will attempt to slow his rhythm with Cardizem. I have consulted Dr. Infante with the internal medicine service this morning. I spoke to him personally. Per his instructions the patient is to be transferred to the ICU for ongoing cardiac monitoring, diltiazem drip, and further cardiac evaluation. I will defer to his expertise. I doubt significant electrolyte disturbance since his laboratory studies after the colonoscopy yesterday afternoon were unremarkable. He obviously has issues with significant protein calorie malnutrition, but I do not anticipate this is an underlying problem related to the cardiac event. He has no evidence of pulmonary embolism either by clinical examination with normal room-air saturations, symptomatology, or chest x-ray. Furthermore, he has been on appropriate DVT prophylaxis since admission. I discussed all the above with the patient and his this morning. Follow-up troponin level later this morning has been ordered. Regarding his pain control, I discussed this with him in detail. If he requires further relief then I would plan to add a fentanyl patch at a low dose. I will continue to follow him along with the internal medicine service.
[2018-05-24] MEDS: dilTIAZem 25 MG/5 ML SDV 20 MG IV (06:45)
[2018-05-24] MEDS: dilTIAZem 125 MG in DEXTROSE 5 % IN WATER 100 ML IV (07:05)
--- NOTE | 2018-05-24 07:23 | PC.NURSE ---
Received patient at 0640, on Telemetry, HR 160s A-fib RVR rate 150s, 20mg IVP Diltiazem given slowly, followed by Diltiazem gtt at 5mg/hr, HR decreased down to 110-120s, BP remained stable, see vital trends. Denies chest pain, pressure, or dyspnea. at bedside.
--- NOTE | 2018-05-24 07:29 | PM.CN ---
History of Present Illness Date Patient Seen: 05/24/18 Time Patient Seen: 07:29 Chief complaint: GROIN PAIN, INJURED 6 WEEKS AGO Reason for consult: Heart palpitations Narrative: 73-year-old male admitted to the hospital for abdominal and groin pain found to have what looks like metastatic cancer on a CT scan of the pelvis and abdomen. CT colonoscopy was done looking for primary cancer the colonoscopy was clear CEA was normal but PSA was elevated over 500. He has bony mets also. It is presumed that he has prostate cancer with metastatic disease. He was scheduled to probably go home today but then developed chest pressure with palpitations and EKG showed rapid AFib with the ventricular response about 140-150. No prior history of heart problems [facility] Medical History No significant past medical history (Acute) Surgical History No significant past surgical history (Acute) Family History: Reviewed 05/21/18 by Kurtis More MD Social History household members: spouse Smoking Status: Never smoker Meds Home Medications Medication Instructions Recorded Confirmed Type No Known Home Medications 05/22/18 05/22/18 History Allergies Allergy/AdvReac Type Severity Reaction Status Date / Time No Known Drug Allergies Allergy Verified 05/21/18 01:46 Review of Systems Review of Systems All systems reviewed & are unremarkable except as noted in HPI and below Exam Vital Signs (past 8 hours): - 05/23/18 23:58 05/24/18 00:00 05/24/18 03:28 Temperature 98.5 F 99.0 F Pulse Rate 97 H Respiratory Rate 16 Blood Pressure 152/75 H Pulse Oximetry 95 95 05/24/18 04:23 05/24/18 05:53 05/24/18 06:45 Temperature 98.6 F Pulse Rate 170 H 162 H 163 H Respiratory Rate 12 18 Blood Pressure 121/82 H 115/80 104/72 Pulse Oximetry 96 98 Oxygen Delivery Method Room Air Oxygen Flow Rate 2 Narrative Exam Narrative: Pleasant male appears to be in no acute distress HEENT exam unremarkable Neck is supple oropharynx clear Heart irregular and tachycardic Abdomen soft nontender Lungs are clear to auscultation Lower extremities no edema Neuro exam awake alert oriented speech normal no focal deficits Skin warm and dry Objective Labs Result Diagrams: 05/23/18 14:30 05/23/18 14:30 Labs: Laboratory Results - last 24 hr 05/23/18 05/23/18 05/23/18 14:30 14:30 17:30 WBC 10.9 RBC 3.74 L Hgb 11.7 L Hct 33.2 L MCV 89.0 MCH 31.3 MCHC 35.2 RDW 13.2 Plt Count 113 L Neut % (Auto) 77.1 H Lymph % (Auto) 14.2 L Coffey % (Auto) 7.8 Eos % (Auto) 0.4 L Baso % (Auto) 0.5 Neut # (Auto) 8400 H Sodium 136 L Potassium 3.9 Chloride 98 Carbon Dioxide 28 BUN 15 Creatinine 0.70 Estimated GFR > 60.0 BUN/Creatinine Ratio 21.4 Glucose 85 Calcium 8.2 L Total Bilirubin 0.9 AST 113 H ALT 67 Alkaline Phosphatase 494 H Total Creatine Kinase Troponin I Total Protein 5.4 L Albumin 2.9 L Globulin 2.5 Albumin/Globulin Ratio 1.2 Prostate Specific Ag 536.000 H Urine Color Yellow Urine Appearance Clear Urine pH 5.0 Ur Specific [place] 1.025 Urine Protein 1+ H Urine Glucose (UA) Negative Urine Ketones 2+ H Urine Occult Blood Trace-lysed Urine Nitrate Negative Urine Bilirubin Negative Urine Urobilinogen 0.2 Ur Leukocyte Esterase Negative Urine RBC None seen Urine WBC None seen Amorphous Sediment 1+ Urine Bacteria None seen Ur Culture Indicated? Cult not indicated Micro UA Comment Not Reportable 05/24/18 04:45 WBC RBC Hgb Hct MCV MCH MCHC RDW Plt Count Neut % (Auto) Lymph % (Auto) Coffey % (Auto) Eos % (Auto) Baso % (Auto) Neut # (Auto) Sodium Potassium Chloride Carbon Dioxide BUN Creatinine Estimated GFR BUN/Creatinine Ratio Glucose Calcium Total Bilirubin AST ALT Alkaline Phosphatase Total Creatine Kinase 146 Troponin I 0.088 H Total Protein Albumin Globulin Albumin/Globulin Ratio Prostate Specific Ag Urine Color Urine Appearance Urine pH Ur Specific [place] Urine Protein Urine Glucose (UA) Urine Ketones Urine Occult Blood Urine Nitrate Urine Bilirubin Urine Urobilinogen Ur Leukocyte Esterase Urine RBC Urine WBC Amorphous Sediment Urine Bacteria Ur Culture Indicated? Micro UA Comment Assessment & Plan Plan: Assessment/Plan Narrative: One. New onset AFib with rapid ventricular response. Patient has been moved down to the ICU for diltiazem infusion plan to also start oral metoprolol. Magnesium thyroid potassium to be checked. Troponin to be recheck. Echo to be ordered. Probably should be on long-term anticoagulation with his history of cancer. 2. Recently diagnosed presumed prostate cancer with metastases. The patient will be referred to Oncology and Urology as an outpatient
[2018-05-24 07:54] LABS: BUN Creatinine Ratio 18.6 (6-22); Blood Urea Nitrogen 13 mg/dL (9-20); Calcium 8.4 mg/dL (8.4-10.2); Carbon Dioxide 24 mmol/L (22-32); Chloride 99 mmol/L (98-107); Estimated Glomerular Filt Rate > 60.0 mL/min (>60); Glucose 103 mg/dL (80-110); HEMOLYSIS < 15 (0-50); Potassium 3.5 mmol/L (3.4-5.1); Sodium 133 mmol/L (137-145)
[2018-05-24] MEDS: GABAPENTIN 300 MG CAPSULE PO ×3 (08:20→21:13)
[2018-05-24] MEDS: METOPROLOL 50 MG TABLET PO ×2 (08:20→21:13)
[2018-05-24] MEDS: DOCUSATE 100 MG CAPSULE PO ×2 (12:25→21:13)
[2018-05-24] MEDS: ENOXAPARIN 40 MG/0.4 ML SYRINGE SUBCUT (12:26)
[2018-05-24] MEDS: fentaNYL 25 MCG/PATCH TOP (12:40)
--- NOTE | 2018-05-24 13:18 | PC.NURSE ---
PT REPORTS PAIN IN RIGHT GROIN/HIPAREA INITIATION OF FENTANYL PATCH 25MCG PLACED TOPICALLY TO ASSIST IN ADEQUATE PAIN CONTROL ALONG WITH PO DILAUDID AND TYLENOL USE. PTCONVERTED FROM AFIB RVR TO NSR AT APPROX 1235 PM AND DILT GTT SLOWED THEN STOPPED COMPLETELY
--- NOTE | 2018-05-24 13:46 | CM.DPC ---
DCP: continued: Pt not in ICU and hospitalist is consulting. Met with pt and his Jessica. Their 17 year old daughter has been at a camp on [place] for last few days, is coming to hospital today to join her parents. Jessica confirms that she talked with Dr. More this morning and that since the source of cancer has been identified as prostate (considered Stage IV) he has recommended a snf in [facility] so that access could be had with urology (not available in [place] at this time). Jessica confirms choice as [facility] and vm referral is left now with Crist[facility] (on today for admissions). Will fax clinical and provide [facility] brochure to Jessica and pt. Jessica confirms my job is to handle the details of all this for my and pt agrees. Providers at this point seem unaware of the d/c plans being made. Plan is not for home. P: remains snf...DCP team to followup with [facility] tomorrow.
[2018-05-24 16:03] LABS: Troponin I 0.277 ng/mL (0.01-0.034)
--- NOTE | 2018-05-24 17:05 | PC.NURSE ---
Patient sitting up in chair- reviewed plan of care- pain medication every 3 hours to control right groin/sacral pain. Noted remaining in nsr on monitor. Needs assistance with legs when transferring out of bed to decrease pain.
[2018-05-24 20:16] LABS: Troponin I 0.194 ng/mL (0.01-0.034)
[2018-05-24] MEDS: SENNOSIDES 8.6 MG TABLET PO (21:13)
[2018-05-25] VITALS (12 sets, daily range): BP systolic 140–160; BP diastolic 72–95; PULSE 76–94; RESP 13–20; TEMP 37.6–38.3; O2SAT 89–95; BMI 21.9
[2018-05-25] MEDS: HYDROMORPHONE 2 MG TABLET PO ×8 (02:29→23:26)
[2018-05-25] MEDS: ACETAMINOPHEN 325 MG TABLET 650 MG PO ×2 (04:50→16:23)
[2018-05-25] MEDS: DOCUSATE 100 MG CAPSULE PO ×2 (08:33→21:31)
[2018-05-25] MEDS: METOPROLOL 50 MG TABLET PO ×2 (08:33→21:32)
[2018-05-25] MEDS: GABAPENTIN 300 MG CAPSULE PO ×3 (08:33→21:31)
--- NOTE | 2018-05-25 09:44 | PM.PN.1 ---
Subjective Date Patient Seen: 05/25/18 Time Patient Seen: 08:10 Interval history: Patient sitting up in bed in no acute distress. He denies any chest pain, pressure, nausea or vomiting. States his appetite is slowly returning. Describes as right groin pain and lower back pain 3-7 out of 10. Exam Vital Signs (past 8 hours): - 05/25/18 04:54 05/25/18 05:00 05/25/18 08:08 Temperature 100.1 F H 100.1 F H Pulse Rate 94 H 80 Respiratory Rate 20 13 Blood Pressure 140/72 H 151/79 H Pulse Oximetry 91 89 L 94 05/25/18 08:22 Temperature Pulse Rate Respiratory Rate Blood Pressure Pulse Oximetry 94 Oxygen Delivery Method Room Air Oxygen Flow Rate 0 Const General: cooperative, healthy appearing, comfortable, well developed and well groomed Nutritional Appearance: average body habitus Orientation: alert, awake and oriented x3 HENMT Head: normal to inspection, normocephalic and atraumatic Eyes General: appearance normal, both eyes and all related structures Pupils: PERRL Neck Neck: normal visual inspection, trachea midline and supple Other: No JVD or lymphadenopathy Chest Chest: normal inspection of the chest Resp Effort & Inspection: normal respiratory effort Auscultation: clear to auscultation bilaterally Cardio Rate: regular rate Rhythm: regular rhythm Heart Sounds: S1 normal and S2 normal Other: Normal sinus rhythm AV rate of 90 per minute on monitor GI Inspection: normal to inspection Palpation: soft Auscultation: normal bowel sounds Other: Nontender, no masses palpated Other: A voiding Skin General: no rashes or lesions noted, turgor normal, dry skin and warm Neuro General: alert, awake and oriented x3 Cranial Nerves: tongue midline Cognition: normal cognition Speech: speech normal Motor: muscle tone normal throughout Sensory Exam: no sensory deficits noted Extrem General: capillary refill normal and no calf tenderness Other: Plus one pitting edema in bilateral ankles. Psych Appearance: grossly normal Mental Status: mental status grossly normal Mood: congruent mood Affect: normal affect Attitude: cooperative Thought Process: normal Thought Content: normal Judgment: judgment good Objective Labs Result Diagrams: 05/23/18 14:30 05/24/18 04:45 Labs: Laboratory Results - last 24 hr 05/24/18 05/24/18 14:28 19:30 Troponin I 0.277 H* 0.194 H* Assessment & Plan Plan: Assessment/Plan Narrative: 1. New onset AFib with rapid ventricular response. Patient was moved down to the ICU for diltiazem infusion plan to also start oral metoprolol. He converted to normal sinus rhythm yesterday morning with an AV in the 80s and 90s. The diltiazem drip was stopped after he was placed on metoprolol 50 mg b.i.d.. His troponins did bump x3 with the highest being 0.28. Twelve lead EKG shows subendocardial injury. Echocardiogram results showed ejection fraction between 60-65%, left atrium is moderately dilated, there is no significant valvular disease. Magnesium level was normal. Probably should be on long-term anticoagulation with his history of cancer. T-max yesterday was 101.2. O2 saturations are 90+ on room air. 2. Recently diagnosed presumed prostate cancer with metastases. The patient will be referred to Oncology and Urology as an outpatient. 3. Disposition: Plan on observing overnight, and if he remains chest discomfort-free and in normal sinus rhythm may be discharged.
--- NOTE | 2018-05-25 10:48 | PM.PN.1 ---
Subjective Date Patient Seen: 05/25/18 Time Patient Seen: 10:48 Interval history: Patient converted to normal sinus rhythm yesterday afternoon. He denies any chest pain or shortness of breath currently. In fact, he is feeling much better and overall is in much better spirits today. Appetite is slowly returning and he is tolerating some regular food without nausea or vomiting. Denies any abdominal pain at all. He is feeling somewhat subjectively distended since colonoscopy, but he is passing flatus. No difficulties with urination. Pain is much better controlled today with the addition of the fentanyl patch. Exam Vital Signs (past 8 hours): - 05/25/18 04:54 05/25/18 05:00 05/25/18 08:08 Temperature 100.1 F H 100.1 F H Pulse Rate 94 H 80 Respiratory Rate 20 13 Blood Pressure 140/72 H 151/79 H Pulse Oximetry 91 89 L 94 05/25/18 08:22 Temperature Pulse Rate Respiratory Rate Blood Pressure Pulse Oximetry 94 Oxygen Delivery Method Room Air Oxygen Flow Rate 0 Narrative Exam Narrative: Sitting comfortably upright in bed in no acute distress. Alert oriented x3. is at the bedside during my visit. Sclera nonicteric Regular rate and rhythm on the monitor Abdomen is soft and minimally distended. He is minimally tympanitic but has absolutely no tenderness. No guarding or rebound. No masses. Objective Labs Result Diagrams: 05/23/18 14:30 05/24/18 04:45 Labs: Laboratory Results - last 24 hr 05/24/18 05/24/18 14:28 19:30 Troponin I 0.277 H* 0.194 H* Assessment & Plan Plan: Assessment/Plan Narrative: 73-year-old male with probable metastatic prostate cancer and no evidence of any significant colorectal disease who is improving slowly with his current pain regimen. Pain is likely due to bony metastases seen on recent imaging. Plan will be to obtain Urology in medical oncology consultations as an outpatient in the near future. Recommend aggressive bowel regimen to maintain normal bowel function while receiving significant narcotics for pain control. Ambulate aggressively. I discussed this with him today, and he voiced understanding. Continue diet as tolerated otherwise. Appreciate Internal Medicine service management of his cardiac issues. Echocardiogram done today. At this point I will defer to the expertise of the internal medicine service, but general surgery will be available as needed for the remainder of his hospitalization. Again, all questions were answered to the patient and his 's satisfaction. They were agreeable to the plan.
[2018-05-25] MEDS: ENOXAPARIN 40 MG/0.4 ML SYRINGE SUBCUT (12:55)
--- NOTE | 2018-05-25 13:06 | CM.DPC ---
DCP Cont: Spoke to and patient today to confirm that patient is to go to [facility] after discharge. stated that this appropriate for him, for he will get the skilled care that he needs. They live in [facility], so this facility would suit him best. Called and confirmed a hold for a bed from [facility] at [facility]. P: Patient is to go to [facility] upon discharge Latesha Linder RN/Elevator Technician
--- NOTE | 2018-05-25 17:29 | PC.NURSE ---
Patient states he feels a little better today, able to take shower. Noted new rash on back- not itching. no other rash observed. Instructed to change position off back, moved pad down off his back. Temp 100.7- also c/o feeling hot/chills. medicated with tylenol. Placed on tele monitor and ambulated in hallway, hr up to 100 with activity.
[2018-05-25] MEDS: SENNOSIDES 8.6 MG TABLET PO (21:32)
--- NOTE | 2018-05-25 22:10 | PC.NURSE ---
Patient received from ER- awake, restless; rr in the 30-40's, morbid obesity- large abdomen- moving with each respiration. Patient states this is how he usually breathes- and sits up in recliner at home to sleep. hr afib 110-12's on admit. Patient seen by Dr. Tran- reviewed plan of care- Patient started on Diltiazem infusion for rate control- hr 120's. 1914 rhythm changed to wide complex tachycardia hr in the [id number]-within 5 minutes of starting diltiazem infusion- Patient awake, pulses present, bp in the 140's. Diltiazem infusion stopped. Patient more restless, staff emergency called- pacer/defib pads placed- Er charge nurse at bedside. Patient remained awake, hr in the 140's- Dr. Tran notified. Stat labs drawn. Dr. Tran in- orders for Heparin bolus/ heparin infusion started. Dr. Tran contacted Cardiology- orders for digoxin iv. Patient remained awake, rouseable then more restless and diaphoretic - pulling at iv's, gown, c/o discomfort from catheter. Bloody drainage around catheter- clots cleaned. 1954- heart rhythm converted to afib- no further wide complex tachycardia. Dr. Tran updated on phone.
[2018-05-26] MEDS: HYDROMORPHONE 2 MG TABLET PO ×5 (02:26→14:49)
[2018-05-26 04:59] VITALS: BP 153/81; PULSE 89; RESP 16; TEMP 38.1; O2SAT 92
[2018-05-26] MEDS: ACETAMINOPHEN 325 MG TABLET 650 MG PO (05:00)
[2018-05-26 05:43] LABS: Add Manual Diff / Slide Review NO; Basophils Percent Auto 0.6 % (0-2); Eosinophils Percent Auto 0.9 % (2-4); Hemoglobin 10.6 g/dL (13.5-17.5); Lymphocytes Percent Auto 16.5 % (25-40); Mean Corpuscular HGB Conc 35.4 % (30-36); Mean Corpuscular Hemoglobin 31.4 PG (26-34); Mean Corpuscular Volume 88.7 fL (80-100); Monocytes Percent Auto 8.5 % (3-14); Neutrophils Absolute Auto 6100 /uL (3000-5900); Neutrophils Percent Auto 73.5 % (50-75); Platelet Count 129 X10^3/uL (150-400); Red Blood Cell Count 3.38 X10^6/uL (4.5-5.9); Red Cell Distribution Width 12.9 % (11.6-14.8); White Blood Cell Count 8.2 X10^3/uL (4.5-11.0)
[2018-05-26 05:52] LABS: BUN Creatinine Ratio 18.3 (6-22); Blood Urea Nitrogen 11 mg/dL (9-20); Calcium 7.8 mg/dL (8.4-10.2); Carbon Dioxide 31 mmol/L (22-32); Chloride 98 mmol/L (98-107); Estimated Glomerular Filt Rate > 60.0 mL/min (>60); Glucose 96 mg/dL (80-110); HEMOLYSIS < 15 (0-50); Potassium 3.6 mmol/L (3.4-5.1); Sodium 135 mmol/L (137-145)
[2018-05-26 06:02] LABS: Troponin I 0.089 ng/mL (0.01-0.034)
[2018-05-26] MEDS: ASPIRIN EC 81 MG TABLET PO (08:41)
[2018-05-26] MEDS: METOPROLOL 50 MG TABLET PO (08:43)
[2018-05-26] MEDS: GABAPENTIN 300 MG CAPSULE PO ×2 (08:43→14:49)
[2018-05-26] MEDS: DOCUSATE 100 MG CAPSULE PO (08:43)
[2018-05-26 08:46] VITALS: O2SAT 92
[2018-05-26 09:34] VITALS: BP 152/80; PULSE 73; RESP 18; TEMP 37.4; O2SAT 90
--- NOTE | 2018-05-26 10:54 | PM.DS.1 ---
History of Present Illness Date Patient Seen: 05/26/18 Time Patient Seen: 09:54 Chief complaint: GROIN PAIN, INJURED 6 WEEKS AGO Narrative: 73-year-old otherwise relatively healthy white male who presented to the emergency department earlier this morning with complaints of 2-3 weeks of intractable right sciatic pain, pelvic pressure, and low back pain near the sacrum. He had been moving some items at his home on [address] [address] several weeks ago and thought that he may have just simply incurred a musculoskeletal strain. He consulted with his family physician who placed him on [place], but the patient has noticed this to be ineffective with progression of his pain over the last 7-10 days. Denies any dysuria or hematuria. No urinary retention. Since starting the pain medication, however, he has had progressive difficulties with constipation. Last bowel movement was 2 days ago. He normally moves his bowels easily once daily. He is passing some flatus. Denies any subjective abdominal distention or pain elsewhere in the abdomen. No nausea or vomiting. Appetite has been decreased over the last 2 or 3 weeks since the onset of his symptoms and he reports a 10 lb weight loss over that time frame. No subjective fever or chills. No night sweats. Denies any jaundice. Major issue currently remains his significant pain in the right groin and right sciatic distribution. Denies any numbness or tingling elsewhere in the lower extremities. No weakness. No incontinence of stool or urine. Denies any melena, hematochezia, or bright red blood per rectum. Of note, he has never had a colorectal screening examination such as colonoscopy. Discharge Providers Date of admission: 05/21/18 05:24 Primary care physician: Nahum Alexander MD Consults: 05/24/18 05:41 Consult to Physician Routine Comment: Consulting Provider: Kurtis Infante Reason for consultation: chest pain, elevated troponin, metastatic prostate cancer, bone pain Has provider been notified: Yes Discharge provider: LUNA Newman Summary Discharge Diagnosis: 1. Probable metastatic prostate cancer 2. Subendocardial injury secondary to demand from increased heart rate 3. Transient atrial fibrillation with rapid ventricular response 4. Right groin pain Hospital Course: This is a summary of a 6 day hospitalization for this 73-year-old patient who originally came in for abdominal and groin pain and was subsequently found to have what appears to be metastatic cancer on CT of the pelvis and abdomen. CT colonoscopy was done looking for primary cancer and a colonoscopy was clear. PSA level was over 500. He also has what appear to be bony metastatic process. His presumed that he has prostate cancer with metastatic disease. He was scheduled to go home on the 24 of May to be followed up with Oncology Neurology but developed chest pressure and palpitations his EKG showed rapid atrial fibrillation with ventricular response in the 150s. He has no history of prior heart disease. He was started on a Cardizem drip with good rate controlled spontaneous converted back to normal sinus rhythm in which she has remained. Troponin levels bumped to 0.28 on the 24 of May, and have come down to 0.09 on the morning of discharge. His EKG showed subendocardial injury most likely due to from demand of the high heart rate. He has remained chest discomfort free since his initial event. His echocardiogram showed an ejection fraction of 60-65%, left atrial dilation, and no significant valvular disease. He continues to have right groin pain for which she is medicated with a fentanyl patch and p.o. Dilaudid. His chads-2 Vasc score was 1 so he will just be placed on p.o. aspirin for anticoagulation. He will be transferred to [facility] for halfway as to be followed with Oncology and Urology while he is there. Status at Discharge Functional status at discharge: independent ambulation Overall status at discharge: patient is progressing back to baseline Time Spent with Patient Greater than 30 minutes Exam Vital Signs (past 8 hours): - 05/26/18 04:59 05/26/18 08:46 05/26/18 09:34 Temperature 100.5 F H 99.4 F Pulse Rate 89 73 Respiratory Rate 16 18 Blood Pressure 153/81 H 152/80 H Pulse Oximetry 92 92 90 L Oxygen Delivery Method Room Air Oxygen Flow Rate 0 Narrative Exam Narrative: General: cooperative, healthy appearing, comfortable, well developed and well groomed Nutritional Appearance: average body habitus Orientation: alert, awake and oriented x3 HENMT Head: normal to inspection, normocephalic and atraumatic Eyes General: appearance normal, both eyes and all related structures Pupils: PERRL Neck Neck: normal visual inspection, trachea midline and supple Other: No JVD or lymphadenopathy Chest Chest: normal inspection of the chest Resp Effort & Inspection: normal respiratory effort Auscultation: clear to auscultation bilaterally Cardio Rate: regular rate Rhythm: regular rhythm Heart Sounds: S1 normal and S2 normal Other: Normal sinus rhythm AV rate of 80 per minute on monitor GI Inspection: normal to inspection Palpation: soft Auscultation: normal bowel sounds Other: Nontender, no masses palpated Other: Voiding spontaneously. Continues to have right groin pain Skin General: no rashes or lesions noted, turgor normal, dry skin and warm Neuro General: alert, awake and oriented x3 Cranial Nerves: grossly normal Cognition: normal cognition Speech: speech normal Motor: muscle tone normal throughout Sensory Exam: no sensory deficits noted Extrem General: capillary refill normal and no calf tenderness Other: Plus one pitting edema in bilateral ankles. Psych Appearance: grossly normal Mental Status: mental status grossly normal Mood: congruent mood Affect: normal affect Attitude: cooperative Thought Process: normal Thought Content: normal Judgment: judgment good Objective Labs Result Diagrams: 05/26/18 04:46 05/26/18 04:46 Labs: Laboratory Results - last 24 hr 05/26/18 05/26/18 04:46 04:46 WBC 8.2 RBC 3.38 L Hgb 10.6 L Hct 30.0 L MCV 88.7 MCH 31.4 MCHC 35.4 RDW 12.9 Plt Count 129 L Neut % (Auto) 73.5 Lymph % (Auto) 16.5 L [place] % (Auto) 8.5 Eos % (Auto) 0.9 L Baso % (Auto) 0.6 Neut # (Auto) 6100 H Sodium 135 L Potassium 3.6 Chloride 98 Carbon Dioxide 31 BUN 11 Creatinine 0.60 L Estimated GFR > 60.0 BUN/Creatinine Ratio 18.3 Glucose 96 Calcium 7.8 L Troponin I 0.089 H PROCEDURE: CT ABDOMEN PELVIS W CON INDICATIONS: severe Right groin pain with radiation into his back TECHNIQUE: After the administration of intravenous contrast, 5 mm thick sections acquired from the diaphragm to the symphysis. 5 mm coronal and sagittal reformats were acquired. For radiation dose reduction, the following was used: automated exposure control, adjustment of mA and/or kV according to patient size. COMPARISON: None. FINDINGS: Image quality: Excellent. ABDOMEN: Lung bases: Lung bases are clear. Heart size is normal. Solid organs: Liver is normal in size and enhancement. Gallbladder is normal. Biliary system is non dilated. Pancreas enhances normally. Spleen is normal in size and enhancement. No adrenal nodules. Kidneys demonstrate normal size and enhancement, without hydronephrosis. Peritoneum and bowel: There is abrupt caliber change in the distal sigmoid colon. No discrete mass is identified. Moderate amount of stool is present in colon. There are a few colonic diverticula. No evidence for acute diverticulitis. No free air. A trace amount of presacral free fluid is present. Nodes and vessels: Multiple enlarged para-aortic and aortocaval lymph nodes are present. For example, a 2.4 x 1.9 cm left para-aortic lymph node is noted. There is a 1.9 x 2.5 cm aortic liver lymph node. Aorta and inferior vena cava are normal in size. There is moderate atherosclerosis. Miscellaneous: No ventral hernias. PELVIS: Genitourinary: Bladder wall thickness is normal. Enlarged prostate. Miscellaneous: Small perirectal lymph nodes are noted. No inguinal hernias or adenopathy. Bones: There are diffuse osseous sclerosis suspicious for metastases. No vertebral body compression fractures. IMPRESSION: 1. Retroperitoneal lymphadenopathy consistent with metastatic disease or lymphoma. 2. Diffuse osseous sclerosis consistent with osseous metastases. 3. Abrupt change in caliber of the distal sigmoid colon. There are small perirectal lymph nodes. Recommend colonoscopy for further evaluation rule out primary colon cancer. 4. Mild diverticulosis without acute diverticulitis. 5. Enlarged prostate. 6. Trace amount of free fluid in pelvis. No significant discrepancy with the overnight stocker radiology preliminary report. Dictated by: Evelyn Rodriguez M.D. on 05/21/2018 at 8:13 Approved by: Evelyn Rodriguez M.D. on 05/21/2018 at 8:26 Interpretation Summary The ejection fraction is estimated to be 60-65%. The left atrium is moderately dilated. The right ventricular systolic pressure is estimated at 30 mmHg assuming a right atrial pressure of 3 mm Hg. There is no significant valvular heart disease. Procedure: A two-dimensional transthoracic echocardiogram with color flow and Doppler was performed. The study quality was technically good. There is no prior echocardiogram noted for this patient. The patient was in normal sinus rhythm during the exam. Left Ventricle: The left ventricle is normal in size, wall thickness, and systolic function without any focal wall motion abnormalities. The ejection fraction is estimated to be 60-65%. Assessment of diastolic parameters suggests a pseudonormalization pattern, consistent with elevated filling pressures. Right Ventricle: The right ventricle grossly appears normal in size with probable normal systolic function. Atria: The left atrium is moderately dilated. Right atrial size is normal. The interatrial septum is intact with no evidence for an atrial septal defect. Mitral Valve: The mitral valve is normal in structure and function. There is trace mitral regurgitation. Aortic Valve: The aortic valve is trileaflet. The aortic valve opens well. No aortic regurgitation is present. Tricuspid Valve: The tricuspid valve is normal in structure and function. There is a trace or physiologic amount of tricuspid regurgitation. The right ventricular systolic pressure is estimated at 30 mmHg assuming a right atrial pressure of 3 mm Hg. Pulmonic Valve: The pulmonic valve is not well seen, but is grossly normal. There is mild pulmonic regurgitation. Great Vessels: The aortic root is mildly dilated. The ascending aorta is at the upper limits of normal in size. The IVC is of normal diameter and collapses greater than 50% with a sniff. This suggests a low right atrial pressure of 3 mm Hg. Pericardium/ Pleura There is no pericardial effusion. There is no pleural effusion. MMode/2D Measurements & Calculations LVIDd: 4.5 cm Ao root diam: 3.8 cm LVIDs: 3.1 cm Aortic Jxn: 3.1 cm FS: 32.7 % asc Aorta Diam: 3.6 cm EPSS: 0.50 cm Ao Arch Diam (Prox Trans): 2.5 cm IVSd: 0.84 cm LVPWd: 0.95 cm LV pal. diameter/BSA (cm/m^2): 2.6 LV sys. diameter/BSA (cm/m^2): 1.8 LA dimension: 3.8 cm RA long axis: 4.8 cm LA A2 area: 23.7 cm2 RA area: 17.5 cm2 LA A4 area: 20.5 cm2 RA vol: 54.2 ml LA length (vol): 4.9 cm RA : 31.3 ml/m2 LA vol: 84.4 ml IVC diam: 1.6 cm LA vol index: 48.8 ml/m2 RVDd major: 4.9 cm RVD1 (basal): 3.4 cm RVD2 (mid): 2.9 cm Doppler Measurements & Calculations Ao V2 max: 115.4 cm/sec MV E max uriel: 95.3 cm/sec Ao V2 mean: 87.5 cm/sec MV A max uriel: 81.6 cm/sec Ao max P.3 mmHg MV E/A: 1.2 Ao mean P.5 mmHg Med Peak E' Uriel: 6.2 cm/sec Ao V2 VTI: 26.7 cm E/E' med: 15.3 Lat Peak E' Uriel: 6.5 cm/sec E/E' lat: 14.6 E/e' average: 15.0 MV dec time: 0.15 sec MV P1/2t: 45.9 msec TR max uriel: 260.4 cm/sec MV P1/2t max uriel: 95.8 cm/sec TR max P.1 mmHg MVA(P1/2t): 4.8 cm2 PA V2 max: 113.7 cm/sec PA V2 mean: 70.8 cm/sec PA mean P.5 mmHg PA Accel Time: 0.14 sec Reading Physician:12:07 PM PROCEDURE: XR CHEST 1V INDICATIONS: chest pain TECHNIQUE: One view of the chest was acquired. COMPARISON: [facility], CT, CT ABDOMEN PELVIS W CON, 05/21/2018, 3:13. FINDINGS: Surgical changes and devices: None. Lungs and pleura: There is blunting of the left costophrenic angle as well as dependent left basilar changes. Mediastinum: Mediastinal contours appear normal. Heart size is normal. Bones and chest wall: No suspicious bony lesions. Overlying soft tissues appear unremarkable. IMPRESSION: Blunting of the left costophrenic angle consistent with small effusion. Dependent changes in the left base are also noted possibly atelectasis versus developing airspace disease such as pneumonia. Dictated by: Laina Mullins M.D. on 05/24/2018 at 9:23 Approved by: Laina Mullins M.D. on 05/24/2018 at 9:24 Discharge Plan Discharge Plan Patient Disposition: SNF Transfer to: [facility] Transportation: Facility vehicle Discharge comment: He will need appointments in Urology and Oncology at [facility] I certify the postop hospital halfway care is medically necessary on a continuing basis for any conditions for which he/ she received care during this hospitalization.: Yes The receiving facility has agreed to accept transfer and provide medical treatment.: Yes Discharge Health Status Multidrug resistant organism: No MDRO Precautions: [place] Provider Discharge Instructions Diet: Regular Activity: As tolerated Oxygen: Room air Discharge Data Primary Care Provider: Nahum Alexander Attending Provider: Kurtis Infante Admit Date/Time: 05/21/18 05:24
--- NOTE | 2018-05-26 11:31 | CM.DPC ---
DCP Cont: Patient is to be discharged today to [facility]. is with patient, and is aware. He will be following up with oncologist, as well as urologist. Asked [employer] to put these orders in discharge summary, to enable Yesenia at [facility] to follow up. Spoke to Yesenia at [facility], faxed PASSR and information to her. She will arrange for patient to be picked up, and will let us know what time. Will then update ICU. Latesha Linder RN/Glaciologist
[2018-05-26] MEDS: fentaNYL 50 MCG/PATCH TOP (11:45)
--- NOTE | 2018-05-26 15:24 | PC.NURSE ---
Discharge Note Transferred to [facility] at 1510. All belongings with pt's . Info packet with prescriptions with pt. Attempted to call report to [facility] - answering machine reached and msg left.
== END 2018-05-26 15:10 | DRG 542 ==
LOC: ED 01:33 → AC 05:26 → ICU 05-24 11:02
PROVIDERS: Nurse Practitioner Acute Care; Surgery; Admitting Provider Internal Medicine; Emergency Provider Emergency Medicine; PCP Family Medicine; Visit Provider Internal Medicine
PROC: 0DJD8ZZ Inspection of Lower Intestinal Tract, Via Natural or Artificial Opening Endoscopic (ICD-10-PCS; CPT 45378; principal; 2018-05-23 10:00)
DX: C79.51 Secondary malignant neoplasm of bone (principal); I21.A1 Myocardial infarction type 2; E46 Unspecified protein-calorie malnutrition; C77.5 Secondary and unspecified malignant neoplasm of intrapelvic lymph nodes; G89.3 Neoplasm related pain (acute) (chronic); M54.41 Lumbago with sciatica, right side; C61 Malignant neoplasm of prostate; Z68.21 Body mass index [BMI] 21.0-21.9, adult; D63.0 Anemia in neoplastic disease; I48.91 Unspecified atrial fibrillation; Z12.11 Encounter for screening for malignant neoplasm of colon
CPT/HCPCS: 36415; 36591; 45378; 71045; 74177; 80048; 80053; 81001; 81003; 82378; 82550; 82553; 83690; 83735; 84153; 84443; 84484; 85025; 87797; 93005; 93306; 96361; 96374; 96375; 99152; 99153; 99282; 99285; J1170; J1650; J1885; J2250; J2405; J3010; Q9967